=== PATIENT | female | born 2000 | race Caucasian/White ===

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

== ENCOUNTER → 2020-05-13 15:08 | Outpatient (BNVA) | payer OTHER, MEDICAID, SELFPAY | PROVIDERS: Visit Provider Nurse Practitioner Family | DX: N39.0 Urinary tract infection, site not specified (principal); R31.9 Hematuria, unspecified | CPT/HCPCS: 81000; 87077; 87086; 87184 ==

== ENCOUNTER → 2020-10-14 13:26 | Outpatient (BNVA) | payer OTHER, BC, MEDICAID, SELFPAY | PROVIDERS: Visit Provider Obstetrics & Gynecology | DX: Z32.01 Encounter for pregnancy test, result positive (principal) | CPT/HCPCS: 81025 ==

== ENCOUNTER → 2020-11-23 15:37 | Outpatient (BNVA) | payer OTHER, BC, MEDICAID, SELFPAY | PROVIDERS: Visit Provider Obstetrics & Gynecology | DX: N92.6 Irregular menstruation, unspecified (principal); O21.9 Vomiting of pregnancy, unspecified; Z3A.08 8 weeks gestation of pregnancy | CPT/HCPCS: 81025 ==

== ENCOUNTER → 2020-11-27 09:05 | Outpatient (BNVA) | payer OTHER, BC, MEDICAID, SELFPAY | PROVIDERS: Visit Provider Nurse Practitioner Women's Health | DX: Z34.01 Encounter for supervision of normal first pregnancy, first trimester (principal); Z3A.08 8 weeks gestation of pregnancy | CPT/HCPCS: 84315; 87077; 87086; 87184 ==

== ENCOUNTER → 2020-12-25 14:14 | Outpatient (BNVA) | payer OTHER, BC, MEDICAID, SELFPAY | PROVIDERS: Visit Provider Registered Nurse Neonatal Intensive Care | DX: Z20.822 Contact with and (suspected) exposure to COVID-19 (principal) | CPT/HCPCS: 87635 ==

== ENCOUNTER → 2021-01-15 09:30 | Outpatient (BNVA) | payer OTHER, BC, MEDICAID, SELFPAY | PROVIDERS: Visit Provider Obstetrics & Gynecology | DX: Z34.01 Encounter for supervision of normal first pregnancy, first trimester (principal) | CPT/HCPCS: 80307; 84315; 85025; 86592; 86762; 86803; 86850; 86900; 87077; 87086; 87184; 87340; 87491; 87591; 87661 ==

== ENCOUNTER 2021-06-22 22:43 | Inpatient (IN) | payer OTHER, BC, MEDICAID, SELFPAY ==
[2021-06-22] VITALS (33 sets, daily range): BP systolic 124–156; BP diastolic 82–101; PULSE 56–118; RESP 16–17; TEMP 36.3–36.7; O2SAT 90–100; BMI 22.9
[2021-06-22 23:05] LABS: Basophils # 0.1 10^3/uL (0.0-0.1); Basophils % 0.4 %; Eosinophils # 0.1 10^3/uL (0.0-0.8); Eosinophils % 0.7 %; Hematocrit 33.8 % (37.0-47.0); Hemoglobin 11.3 g/dL (11.5-15.3); Lymphocytes # 2.3 10^3/uL (1.5-6.5); Lymphocytes % 17.2 %; Mean Corpuscular HGB Conc 33.4 g/dL (30.0-36.0); Mean Corpuscular Hemoglobin 30.4 pg (28.0-34.0); Mean Corpuscular Volume 90.9 fl (81-99); Mean Platelet Volume 12.6 fL (7.4-10.4); Monocytes # 0.7 10^3/uL (0.2-0.9); Monocytes % 5.2 %; Neutrophils # 10.27 10^3/uL (1.8-8.0); Neutrophils % 75.5 %; Nucleated Red Blood Cells % 0 %; Platelet Count 228 10^3/cmm (130-400); Red Blood Count 3.72 10^6/uL (4.1-5.3); Red Cell Distribution Width 13.5 % (12.1-15.1); White Blood Count 13.6 10^3/uL (4.5-13.0)
[2021-06-23] VITALS (75 sets, daily range): BP systolic 112–168; BP diastolic 71–114; PULSE 30–97; RESP 14–18; TEMP 36.1–37.1; O2SAT 90–100
[2021-06-23] MEDS: fentaNYL 50 mcg/mL INJ 2mL IVP ×3 (00:07→02:26)
[2021-06-23] MEDS: dextrose 5%-lactated ringers 1,000 ML 125 ML IV (00:55)
[2021-06-23] MEDS: lactated ringers 1,000 ML 999 ML IV ×2 (02:45→03:34)
--- NOTE | 2021-06-23 03:56 | ANES.PAUD2 ---
Documented by User: Mary Ahmadi CRNA 06/23/21 03:58 Pre-Anesthetic Update Pre-Anesthetic Assessment: Date of Surgery/Procedure: 06/23/21 Preop Diagnosis: IUP Proposed Procedure: Labor Epidural Last Intake: 1800 - meal clears- current Labs Last 48hrs: Short CBC 06/22/21 Range/Units 22:40 WBC 13.6 H (4.5-13.0) 10^3/ uL Hgb 11.3 L (11.5-15.3) g/dL Hct 33.8 L (37.0-47.0) % MCV 90.9 (81-99) fl Plt Count 228 (130-400) 10^3/c mm Neut % (Auto) 75.5 % Neut # (Auto) 10.27 H (1.8-8.0) 10^3/u L Vitals: Temperature 97.3 F L 06/22/21 23:25 Pulse Rate 90 06/23/21 03:53 Pulse Rhythm 06/22/21 22:30 Pulse Strength 3+ Normal 06/22/21 22:30 Respiratory Rate 17 06/23/21 02:26 Respiratory Effort Non-Labored 06/23/21 02:26 Respiratory Depth Normal 06/23/21 02:26 Respiratory Patter n 06/23/21 02:26 Blood Pressure 155/89 06/23/21 03:49 Pulse Oximetry 90 06/23/21 03:53 Oxygen Delivery Me thod 06/22/21 22:30 Exam: Additional Exam Findings (including area of procedure): no changes since previous assessment 6 days prior Cardiac Studies: No Data to Display Anesthesia Procedures Epidural: Time Out Performed: Yes Consents Signed: Procedure Consent Consent: from patient, risks and benefits reviewed and patient agrees to proceed Epidural position: sitting Epidural procedure: sterile prep of area, 1% lidocaine to numb the area, negative for paresthesia passed, test dose given, placed PCEA, sterile dressing applied, L.U.D. no apparent complications and 0.2% Ropiavacaine @ mls/hr (13) Other Information: JASON at 5 cm catheter threaded to 12 cm. Documented by User: Wilfrid Tellez 06/23/21 09:37 Pre-Anesthetic Update Pre-Anesthetic Assessment: Date of Surgery/Procedure: 06/23/21 Cardiac Studies: No Data to Display
[2021-06-23] MEDS: lidocaine 2% INJ 20 mL INJECTION (08:55)
[2021-06-23] MEDS: oxytocin 30 UNIT/500 ML BAG 600 UNIT IV (08:55)
--- NOTE | 2021-06-23 09:19 | P.PCNOB_ITS ---
Delivery Note: Date of delivery: June 23, 2021 Pre-delivery diagnoses: 20-year-old 1 at 38 weeks estimated gestational age in active labor Post-delivery diagnoses: Status post spontaneous vaginal delivery Procedure: Spontaneous vaginal delivery Delivering Physician: Coleman Pringle Findings: 400 Delivery: DELIVERY: The patient progressed to complete without difficulty. She delivered a male with a weight of 7 pounds 3 ounces with Apgars of 9, 9. The baby was delivered from the DICK position and placed on the mother's abdomen. The cord was then clamped and cut 1 minute after delivery There was a nuchal cord x1. There was no meconium. The placenta and 3 vessel cord were delivered intact shortly thereafter. The perineum and vaginal vault were carefully examined. A second-degree posterior midline laceration was noted which was repaired with 3-0 Vicryl in the usual fashion. Both the mother and the baby were in stable condition. Post-Delivery Status: Good History History History 1 Term Miscarriages/Ectopic Living Children A&P Assessment and plan (1) Spontaneous vaginal delivery: I anticipate routine. She should build go home tomorrow afternoon. Status: Acute Coding Level of Care Code Acute Airplane Gastank Liner Assembler for Chg Fwd Diagnoses Spontaneous vaginal delivery O80
--- NOTE | 2021-06-23 09:19 | PM.OPHPUD ---
Labor & Delivery H&P Update Date of Procedure: June 23, 2021 Date H&P Performed: 06/22/21 Admission Diagnosis: Preop diagnosis: 20-year-old 1 at 38 weeks estimated gestational age Planned procedure: Spontaneous vaginal delivery Other information: The patient presented to the hospital in active labor. Her has been relatively unremarkable. Her labs have been as follows. Her blood type is a positive her antibody screen is negative. Her glucose screen was negative. She is rubella immune. Her GBS status is negative. She received a Tdap on 05/07. The remainder of her labs were within normal limits. Related Problem List Diagnoses (1) 38 weeks gestation of : I anticipate routine labor and spontaneous vaginal delivery.
--- NOTE | 2021-06-23 09:37 | ANE.PACU2 ---
Inpatient post-anesthesia follow up: Airway intact: Yes Vital signs: Temperature 97.0 F Pulse Rate 82 Respiratory Rate 16 Blood Pressure 142/88 Pulse Oximetry 99 Oxygen Delivery Me thod Room Air Oxygen Flow Rate Fraction of Inspir ed Oxygen Hydration adequate: Yes Nausea and vomiting: No Pain level: 2
[2021-06-23] MEDS: lanolin oint 7 gm 1 APPLIC TOPICAL (12:04)
[2021-06-23] MEDS: benzocaine-menthol 78 gm Canister 1 SPRAY TOPICAL (12:04)
[2021-06-23 14:35] LABS: Coronavirus Test Green County Not Detected
[2021-06-23] MEDS: ibuprofen 800 mg tablet PO ×2 (15:50→21:29)
[2021-06-23] MEDS: docusate sodium 100 mg Capsule PO (18:20)
[2021-06-23 22:17] LABS: Hematocrit 30.5 % (37.0-47.0); Hemoglobin 10.3 g/dL (11.5-15.3); Mean Corpuscular HGB Conc 33.8 g/dL (30.0-36.0); Mean Corpuscular Hemoglobin 31.3 pg (28.0-34.0); Mean Corpuscular Volume 92.7 fl (81-99); Mean Platelet Volume 12.9 fL (7.4-10.4); Platelet Count 219 10^3/cmm (130-400); Red Blood Count 3.29 10^6/uL (4.1-5.3); Red Cell Distribution Width 13.7 % (12.1-15.1); White Blood Count 16.8 10^3/uL (4.5-13.0)
[2021-06-24 04:39] VITALS: BP 127/75; PULSE 66; RESP 16; TEMP 36.7; O2SAT 99
[2021-06-24 07:10] VITALS: BP 126/88; PULSE 79; RESP 18; TEMP 36.8
[2021-06-24] MEDS: docusate sodium 100 mg Capsule PO (11:23)
[2021-06-24] MEDS: ibuprofen 800 mg tablet PO (11:23)
[2021-06-24] MEDS: prenatal vitamin Capsule 1 CAP PO (11:23)
--- NOTE | 2021-06-24 12:23 | P.DS_ITS ---
Discharge Providers ADMINISTRATIVE PROGRAM SPECIALIST Date of Admission: 06/22/21 22:43 Date of Discharge: 06/24/21 Attending Provider at Admission: Coleman Pringle MD Attending Provider at Discharge: Coleman Pringle MD Primary Care Provider: Jill Clark DO Reason for Visit Reason for Visit: Contractions Hospital Course Hospital Course The patient presented to the hospital in active labor. She had spontaneous rupture membranes. An epidural was placed. She progressed to complete and had an unremarkable delivery of a healthy-appearing male . She had a second- degree tear was repaired in usual fashion. Her course has been unremarkable. Her bleeding has been within normal limits. Her pain is been well controlled. She has breast-fed well. Information Peripartum Data: Infant Delivery Method: Vaginal Physical Exam Narrative: EXAM NARRATIVE: The patient is alert. She appears comfortable. Her heart has a regular rate and rhythm with no murmurs appreciated. Lungs are clear to auscultation bilaterally. Her fundus is firm and below the umbilicus. Urinary Catheter Management: Joiner Latex: Cath Placed During This Visit: yes Reason for Continuing Indwelling Catheter: Other Urinary Catheter Date of Insertion: 06/23/21 Urinary Catheter Time of Insertion: 04:30 History History History 1 Term Miscarriages/Ectopic Living Children Discharge Data Studies Completed and Pending Laboratory Results WBC 16.8 10^3/uL (4.5-13.0) H 06/23/21 21:33 RBC 3.29 10^6/uL (4.1-5.3) L 06/23/21 21:33 Hgb 10.3 g/dL (11.5-15.3) L 06/23/21 21:33 Hct 30.5 % (37.0-47.0) L 06/23/21 21:33 MCV 92.7 fl (81-99) 06/23/21 21:33 MCH 31.3 pg (28.0-34.0) 06/23/21 21:33 MCHC 33.8 g/dL (30.0-36.0) 06/23/21 21:33 RDW 13.7 % (12.1-15.1) 06/23/21 21:33 Plt Count 219 10^3/cmm (130-400) 06/23/21 21:33 MPV 12.9 fL (7.4-10.4) H 06/23/21 21:33 Neut % (Auto) 75.5 % 06/22/21 22:40 Lymph % (Auto) 17.2 % 06/22/21 22:40 [place] % (Auto) 5.2 % 06/22/21 22:40 Eos % (Auto) 0.7 % 06/22/21 22:40 Baso % (Auto) 0.4 % 06/22/21 22:40 Neut # (Auto) 10.27 10^3/uL (1.8-8.0) H 06/22/21 22:40 Lymph # (Auto) 2.3 10^3/uL (1.5-6.5) 06/22/21 22:40 [place] # (Auto) 0.7 10^3/uL (0.2-0.9) 06/22/21 22:40 Eos # (Auto) 0.1 10^3/uL (0.0-0.8) 06/22/21 22:40 Baso # (Auto) 0.1 10^3/uL (0.0-0.1) 06/22/21 22:40 Nucleated RBC % (auto) 0 % 06/22/21 22:40 Nucleated RBCs # 0.0 /100WBC 06/22/21 22:40 Nasal/Oral COVID-19 PCR Not detected 06/23/21 06:00 Vitals Last Vital Signs Temp 98.0 F 06/24/21 04:39 Pulse 66 06/24/21 04:39 Resp 16 06/24/21 04:39 BP 127/75 06/24/21 04:39 Pulse Ox 99 06/24/21 04:39 Discharge Plan Discharge Patient Disposition: Home Condition: Stable Prescriptions: New docusate sodium 100 mg Capsule 100 mg PO BID Qty: 20 0RF ibuprofen 800 mg Tablet 800 mg PO TID Qty: 45 0RF Continued PNV 119-iron fum-folic acid 29 mg iron- 1 mg tablet 1 tab PO DAILY 0RF Discharge Orders: Discharge Order (Routine); Ordered 06/24/21 Ordered By: Coleman Pringle Referrals: Coleman Pringle MD [Physician] - 6 Weeks (Your 6 week post appointment with Dr. Timmons is August 02 @ 1:45pm.) Discharge Diet: Usual diet Discharge Activity: Limit activity as instructed Patient Instructions: Bleeding (DC), Preeclampsia and Eclampsia After Delivery (GEN), Vaginal Delivery (DC), Breast Care for the Mother (DC), OB Food/Drug Interaction Guide, Opioid Safety, Depression Discharge Attestations ADMINISTRATIVE PROGRAM SPECIALIST Time Spent in Discharge Care*: less than 30 min Specific Discharge Activities: Specific discharge activities: educating patient and educating and/or supporting family/caregiver Coding Level of Care Code Acute Collections Attorney for Holger Doyle
[2021-06-24 13:50] VITALS: BP 114/72; PULSE 79; RESP 18; TEMP 37.1
[2021-06-24 14:00] VITALS: BP 114/72; PULSE 79; RESP 18; TEMP 37.1
== END 2021-06-24 14:00 | disposition home or self-care (01) | DRG 807 ==
LOC: OPOB 22:43 → OBGYN 22:43
PROVIDERS: Admitting Provider Family Medicine; PCP Family Medicine; Visit Provider Family Medicine
DX: O69.81X0 Labor and delivery complicated by cord around neck, without compression, not applicable or unspecified (principal); Z37.0 Single live birth; O70.1 Second degree perineal laceration during delivery; Z3A.38 38 weeks gestation of pregnancy
CPT/HCPCS: 12345; 36415; 51702; 59025; 59409; 85025; 85027; 87635; 96374; 96376; 99211; J2795; J3010

== ENCOUNTER 2021-07-18 05:37 | Emergency (ER) | payer OTHER, BC, MEDICAID, SELFPAY ==
[2021-07-18 05:44] VITALS: BP 113/74; PULSE 86; RESP 18; TEMP 36.8; O2SAT 100
[2021-07-18 05:51] VITALS: BP 113/74; PULSE 93; RESP 19; O2SAT 100
--- NOTE | 2021-07-18 06:13 | ED_ITS ---
HPI - Abdominal Pain General: Chief Complaint: Abdominal Pain Stated Complaint: Back Pain Time Seen by Provider: 07/18/21 06:03 Source: patient and family Mode of arrival: ambulatory Limitations: no limitations History of Present Illness: Pt with c/o epigastric abd pain and substernal chest pain. pain is crampy. Mild upper and lower back pain. no neuro changes. mild occas nausea. no vomiting or diarrhea. no fever. no melena or hematochezia. no urinary symptoms. pain for one week intermittently. pt is still breast feeding. pt has vaginal delivery about 3-4 weeks ago Onset (ago): week(s) (1) Pain Consistency: intermittent and colicky Location: Diffuse and Epigastric Severity: mild Migration to: other (back) Exacerbating factors: nothing Relieving factors: medication (tylenol/ibuprofen) Associated Symptoms: Reports GI cramping and nausea; Denies chills, diarrhea, dysuria, fever(s), hematochezia, hematuria and vomiting Review of Systems Const: Denies: fever(s), chills, fatigue or diaphoresis Eyes: Denies: change in vision ENMT: Denies: throat pain Card: Reports: chest pain and other (pleurisy); Denies: palpitations or dyspnea on exertion Resp: Denies: dyspnea or wheezing GI: Reports: abdominal pain, nausea and GI cramping; Denies: vomiting, diarrhea or hematochezia : Denies: flank pain, dysuria, urinary frequency or hematuria Musc: Denies: neck pain Skin/Breast: Denies: rash or pruritus Neuro: Denies: headache(s) or numbness in extremities Psych: Denies: anxiety González/Lymph: Denies: enlarged lymph nodes PFSH ED PFSH: Medical History Menorrhagia with irregular cycle No pertinent past medical history neghx: htn,dm,thyroid,dvt/pe PCP: Joann Chen Urinary incontinence Surgical History H/O total hip arthroplasty (~04/2018) 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 Family History Grandmother Breast cancer Maternal---dx age unknown Uterine cancer Maternal--dx age unknown Mother Hypertension Denies family history of Colon cancer Ovarian cancer Diabetes Heart disease Hypercholesteremia Thyroid disease Stroke Social History (Updated 07/18/21 @ 06:22 by Anson Daly MD) Smoking and tobacco status: never smoked Alcohol intake: never Physical Exam Const: COMMON NORMALS: no acute distress, patient oriented x3, no limitations and well nourished GENERAL APPEARANCE: cooperative HENMT: COMMON NORMALS: normocephalic and atraumatic HEAD & SCALP: normocephalic and atraumatic FACE & SINUS: normal facial exam Eye: COMMON NORMALS: EOMs intact bilaterally Neck/C-Spine: COMMON NORMALS: full ROM, no lymphadenopathy, supple and no meningeal signs GENERAL: Yes normal visual inspection Lymph: LYMPHATIC: no lymphadenopathy noted Chest: COMMONS NORMALS: normal inspection of the chest and normal palpation of entire chest wall CHEST: No Ecchymosis present and No rash Resp: COMMON NORMALS: normal respiratory effort, No retractions and clear to auscultation bilaterally EFFORT & INSPECTION: No respiratory distress AUSCULTATION: clear to auscultation bilaterally Cardio: COMMON NORMALS: regular rate, regular rhythm and Peripheral pulses 2+ throughout JUGULAR VENOUS DISTENTION: no JVD RATE: regular rate RHYTHM: regular rhythm PERIPHERAL PULSES: Peripheral pulses 2+ throughout GI: COMMON NORMALS: Normal to inspection, nondistended, normoactive bowel sounds present and Soft to palpation INSPECTION: Yes other (mild epigastric abd pain; no g/r) PALPATION: Yes Soft to palpation : COMMON NORMALS: Yes no CVA tenderness BLADDER/KIDNEY EXAM: Yes no CVA tenderness Back/Pelvis: COMMON NORMALS: no CVA tenderness THORACIC SPINE/UPPER BACK: Yes normal to inspection and Yes thoracic ROM normal LUMBAR SPINE/LOWER BACK: Yes normal to inspection and Yes lumbar ROM normal Extremity: COMMON NORMALS: normal to inspection, full ROM and capillary refill normal Neuro: COMMON NORMALS: patient oriented x3, CN's II-XII intact bilaterally, no focal motor deficits and no sensory deficits noted MENINGEAL SIGNS: Yes no meningeal signs Psych: COMMON NORMALS: mental status grossly normal and Normal thought process present THOUGHT PROCESS: Normal thought process present Skin: COMMON NORMALS: no rashes or lesions noted and no wounds GENERAL SKIN EXAM: no rashes or lesions noted Course Vital Signs: Vital signs: Vital Signs Temperature 98.3 F 07/18/21 05:44 Pulse Rate 88 07/18/21 07:39 Respiratory Rate 16 07/18/21 07:39 Blood Pressure 114/56 07/18/21 07:39 Pulse Oximetry 98 07/18/21 07:39 MDM - Abdominal Pain Medical Decision Making abdominal pain Lab Data I reviewed the patient's lab results. : 07/18/21 06:35 07/18/21 06:35 Labs/Radiology: Radiology Impressions Chest X-Ray 07/18/21 06:59 IMPRESSION: No acute findings. Abdomen/Pelvis CT 07/18/21 07:38 IMPRESSION: Mild apparent gallbladder wall thickening versus pericholecystic fluid, with no visualized stones. Correlate clinically and consider ultrasound for further evaluation. Laboratory Results WBC 11.0 10^3/uL (4.5-13.0) 07/18/21 06:35 RBC 3.63 10^6/uL (4.1-5.3) L 07/18/21 06:35 Hgb 10.7 g/dL (11.5-15.3) L 07/18/21 06:35 Hct 34.2 % (37.0-47.0) L 07/18/21 06:35 MCV 94.2 fl (81-99) 07/18/21 06:35 MCH 29.5 pg (28.0-34.0) 07/18/21 06:35 MCHC 31.3 g/dL (30.0-36.0) 07/18/21 06:35 RDW 13.2 % (12.1-15.1) 07/18/21 06:35 Plt Count 427 10^3/cmm (130-400) H 07/18/21 06:35 MPV 9.9 fL (7.4-10.4) 07/18/21 06:35 Neut % (Auto) 83.3 % 07/18/21 06:35 Lymph % (Auto) 12.3 % 07/18/21 06:35 [place] % (Auto) 3.5 % 07/18/21 06:35 Eos % (Auto) 0.4 % 07/18/21 06:35 Baso % (Auto) 0.2 % 07/18/21 06:35 Neut # (Auto) 9.18 10^3/uL (1.8-8.0) H 07/18/21 06:35 Lymph # (Auto) 1.4 10^3/uL (1.5-6.5) L 07/18/21 06:35 [place] # (Auto) 0.4 10^3/uL (0.2-0.9) 07/18/21 06:35 Eos # (Auto) 0.0 10^3/uL (0.0-0.8) 07/18/21 06:35 Baso # (Auto) 0.0 10^3/uL (0.0-0.1) 07/18/21 06:35 Nucleated RBC % (auto) 0 % 07/18/21 06:35 Nucleated RBCs # 0.0 /100WBC 07/18/21 06:35 Sodium 143 mmol/L (136-145) 07/18/21 06:35 Potassium 4.2 mmol/L (3.5-5.1) 07/18/21 06:35 Chloride 107 mmol/L (98-107) 07/18/21 06:35 Carbon Dioxide 23 mmol/L (22-29) 07/18/21 06:35 Anion Gap 17.2 (5-19) 07/18/21 06:35 BUN 24 mg/dL (6-20) H 07/18/21 06:35 Creatinine 0.6 mg/dL (0.5-0.9) 07/18/21 06:35 GFR Calculation 127.5 mL/min (90-130) 07/18/21 06:35 Glucose 91 mg/dL (65-115) 07/18/21 06:35 Calculated Osmolality 300 mOsm/kg (285-295) H 07/18/21 06:35 Calcium 9.4 mg/dL (8.5-10.5) 07/18/21 06:35 Total Bilirubin 0.3 mg/dL (0.15-1.2) 07/18/21 06:35 AST 17 U/L (0-32) 07/18/21 06:35 ALT 14 U/L (0-33) 07/18/21 06:35 Alkaline Phosphatase 112 IU/L (35-105) H 07/18/21 06:35 Total Protein 7.9 g/dL (6.6-8.7) 07/18/21 06:35 Albumin 4.7 g/dL (3.5-5.2) 07/18/21 06:35 Globulin 3.2 g/dL (1.3-4.6) 07/18/21 06:35 Lipase 30 U/L (13-60) 07/18/21 06:35 HCG, Qual Negative (Negative) 07/18/21 06:35 Urine Color Yellow (Yellow) 07/18/21 07:37 Urine Appearance Clear (CLEAR) 07/18/21 07:37 Urine pH 5 (5-7) 07/18/21 07:37 Ur Specific [place] 1.025 (1.005-1.030) 07/18/21 07:37 Urine Protein Neg (Negative) 07/18/21 07:37 Urine Glucose (UA) Norm (Normal) 07/18/21 07:37 Urine Ketones Negative (Negative) 07/18/21 07:37 Urine Blood Neg (Negative) 07/18/21 07:37 Urine Nitrate Negative (Negative) 07/18/21 07:37 Urine Bilirubin Neg (Negative) 07/18/21 07:37 Urine Urobilinogen 1 mg/dL (Negative) H 07/18/21 07:37 Ur Leukocyte Esterase Trace (Negative) H 07/18/21 07:37 Urine RBC None /hpf (0-2) 07/18/21 07:37 Urine WBC 5-10 /hpf (0-5) H 07/18/21 07:37 Ur Squamous Epith Cells 10-15 /hpf (0-5) H 07/18/21 07:37 Amorphous Sediment Not Reportable 07/18/21 07:37 Urine Bacteria 1+ /hpf (NONE) H 07/18/21 07:37 Urine Mucus 1+ /hpf 07/18/21 07:37 Imaging Data CXR: My impression: Portable chest x-ray appears normal. No free air. No infiltrates. No pneumothorax CT Abd/Pel: Radiologist's impression: Exam: CT Abdomen And Pelvis With Contrast Exam date and time: 07/18/2021 7:38 AM Age: 20 years old Clinical indication: Abdominal pain; Epigastric; Additional info: Generalized pain; Worse in epigastrium, preg neg; Also C/O back pain; Recent vaginal delivery 3-4 TECHNIQUE: Imaging protocol: Computed tomography of the abdomen and pelvis with contrast. Radiation optimization: All CT scans at this facility use at least one of these dose optimization techniques: automated exposure control; mA and/or kV adjustment per patient size (includes targeted exams where dose is matched to clinical indication); or iterative reconstruction. Contrast material: OMNIPAQUE 300; Contrast volume: 75 ml; Contrast route: INTRAVENOUS (IV);? COMPARISON: CR Hips Krishna 5v wwo Pelvis* [id number] 08/07/2017 3:15 PM RADIATION DOSE METRICS: Total DLP (mGy-cm): 797.15 FINDINGS: Liver: Normal. No mass. Gallbladder and bile ducts: The gallbladder is partially filled. There appears to be mild wall thickening versus pericholecystic fluid. No visualized stones. Normal caliber bile ducts. Pancreas: Normal. No ductal dilation. Spleen: Normal. No splenomegaly. Adrenal glands: Normal. No mass. Kidneys and ureters: No hydronephrosis. No mass. Stomach and bowel: No obstruction. No inflammatory changes. Appendix: No evidence of appendicitis. Intraperitoneal space: No free air. No significant fluid collection. Vasculature: Unremarkable. No abdominal aortic aneurysm. Lymph nodes: Unremarkable. No enlarged lymph nodes. Urinary bladder: Unremarkable as visualized. Reproductive: Unremarkable as visualized. Bones/joints: Unremarkable. No acute fracture. Soft tissues: Unremarkable. CT/CT abdomen pelvis w con* [id number] IMPRESSION: Mild apparent gallbladder wall thickening versus pericholecystic fluid, with no visualized stones. Correlate clinically and consider ultrasound for further evaluation. ? Other Data Patient is not n.p.o. for [facility] ultrasound this point. Patient's last food intake was at 5 AM. Patient will return tomorrow morning for gallbladder ultrasound after being n.p.o. after midnight. Patient instructed to not eat any fatty food. Discharge Plan Discharge Patient Disposition: Home Clinical Impression: Abdominal pain Qualifiers: Abdominal location: generalized Qualified Code(s): R10.84 - Generalized abdominal pain Condition: Stable Prescriptions: New Zofran 4 mg tablet 4 mg PO Q6H PRN (Reason: nausea and vomiting) Qty: 10 2RF No Action PNV 119-iron fum-folic acid 29 mg iron- 1 mg tablet 1 tab PO DAILY 0RF docusate sodium 100 mg Capsule 100 mg PO BID Qty: 20 0RF ibuprofen 800 mg Tablet 800 mg PO TID Qty: 45 0RF Discharge Orders: Discharge ED (Routine); Ordered 07/18/21 Ordered By: Anson Daly Referrals: Niall Sena MD [Physician] - (follow up for possible gallbladder problem) Jill Clark DO [Primary Care Provider] - Discharge Diet: As Directed Discharge Activity: Resume usual activity Patient Instructions: Biliary Colic (ED), Low Fat Diet (ED), Abdominal Pain (ED) Activity Restrictions/Additional Instructions: Follow-up here around 8 AM for gallbladder ultrasound. Bring order sheet with you. You need to be without any to eat after midnight. Avoid fatty foods. If there is a problem with her gallbladder, follow-up with Dr. Sena general surgeon for evaluation of gallbladder. Take ibuprofen or Tylenol for pain. Coding Level of Care Code ED Staff Technologist for Chg Fwd Exam Comprehensive
[2021-07-18] MEDS: pantoprazole 40 mg SDV IVP (06:47)
[2021-07-18 06:48] VITALS: BP 118/81; PULSE 95; RESP 17; O2SAT 98
[2021-07-18 06:48] LABS: Basophils % 0.2 %; Eosinophils % 0.4 %; Hematocrit 34.2 % (37.0-47.0); Hemoglobin 10.7 g/dL (11.5-15.3); Lymphocytes # 1.4 10^3/uL (1.5-6.5); Lymphocytes % 12.3 %; Mean Corpuscular HGB Conc 31.3 g/dL (30.0-36.0); Mean Corpuscular Hemoglobin 29.5 pg (28.0-34.0); Mean Corpuscular Volume 94.2 fl (81-99); Mean Platelet Volume 9.9 fL (7.4-10.4); Monocytes # 0.4 10^3/uL (0.2-0.9); Monocytes % 3.5 %; Neutrophils # 9.18 10^3/uL (1.8-8.0); Neutrophils % 83.3 %; Nucleated Red Blood Cells % 0 %; Platelet Count 427 10^3/cmm (130-400); Red Blood Count 3.63 10^6/uL (4.1-5.3); Red Cell Distribution Width 13.2 % (12.1-15.1)
--- NOTE | 2021-07-18 06:59 | XRR_ITS ---
PROCEDURE INFORMATION: Exam: XR Chest Exam date and time: 07/18/2021 6:59 AM Age: 20 years old Clinical indication: Sternal or substernal pain; Additional info: Substernal chest pain, shield abd TECHNIQUE: Imaging protocol: XR of the chest. Views: 1 view. COMPARISON: CR XR KUB [id number] 06/20/2016 7:55 AM FINDINGS: Lungs: Unremarkable. No consolidation. Pleural spaces: Unremarkable. No pleural effusion. No pneumothorax. Heart/Mediastinum: Unremarkable. No cardiomegaly. Bones/joints: Unremarkable. XR/XR chest 1V portable [id number] IMPRESSION: No acute findings.
[2021-07-18 07:09] LABS: Alanine Aminotransferase 14 U/L (0-33); Albumin Level 4.7 g/dL (3.5-5.2); Alkaline Phosphatase 112 IU/L (35-105); Anion Gap 17.2 (5-19); Aspartate Amino Transferase 17 U/L (0-32); Blood Urea Nitrogen 24 mg/dL (6-20); Calcium 9.4 mg/dL (8.5-10.5); Carbon Dioxide 23 mmol/L (22-29); Chloride 107 mmol/L (98-107); Creatinine Clr Calc Pharmacy 132.1571; Globulin 3.2 g/dL (1.3-4.6); Glomerular Filtration Rate 127.5 mL/min (90-130); Glucose 91 mg/dL (65-115); Lipase 30 U/L (13-60); Osmolality Calculated 300 mOsm/kg (285-295); Potassium 4.2 mmol/L (3.5-5.1); Sodium 143 mmol/L (136-145); Total Bilirubin 0.3 mg/dL (0.15-1.2); Total Protein 7.9 g/dL (6.6-8.7)
[2021-07-18 07:10] LABS: HCG, Serum Qual Negative (Negative)
--- NOTE | 2021-07-18 07:38 | CTR_ITS ---
PROCEDURE INFORMATION: Exam: CT Abdomen And Pelvis With Contrast Exam date and time: 07/18/2021 7:38 AM Age: 20 years old Clinical indication: Abdominal pain; Epigastric; Additional info: Generalized pain; Worse in epigastrium, preg neg; Also C/O back pain; Recent vaginal delivery 3-4 TECHNIQUE: Imaging protocol: Computed tomography of the abdomen and pelvis with contrast. Radiation optimization: All CT scans at this facility use at least one of these dose optimization techniques: automated exposure control; mA and/or kV adjustment per patient size (includes targeted exams where dose is matched to clinical indication); or iterative reconstruction. Contrast material: OMNIPAQUE 300; Contrast volume: 75 ml; Contrast route: INTRAVENOUS (IV); COMPARISON: CR Hips Krishna 5v wwo Pelvis* [id number] 08/07/2017 3:15 PM RADIATION DOSE METRICS: Total DLP (mGy-cm): 797.15 FINDINGS: Liver: Normal. No mass. Gallbladder and bile ducts: The gallbladder is partially filled. There appears to be mild wall thickening versus pericholecystic fluid. No visualized stones. Normal caliber bile ducts. Pancreas: Normal. No ductal dilation. Spleen: Normal. No splenomegaly. Adrenal glands: Normal. No mass. Kidneys and ureters: No hydronephrosis. No mass. Stomach and bowel: No obstruction. No inflammatory changes. Appendix: No evidence of appendicitis. Intraperitoneal space: No free air. No significant fluid collection. Vasculature: Unremarkable. No abdominal aortic aneurysm. Lymph nodes: Unremarkable. No enlarged lymph nodes. Urinary bladder: Unremarkable as visualized. Reproductive: Unremarkable as visualized. Bones/joints: Unremarkable. No acute fracture. Soft tissues: Unremarkable. CT/CT abdomen pelvis w con* [id number] IMPRESSION: Mild apparent gallbladder wall thickening versus pericholecystic fluid, with no visualized stones. Correlate clinically and consider ultrasound for further evaluation.
[2021-07-18 07:39] VITALS: BP 114/56; PULSE 88; RESP 16; O2SAT 98
[2021-07-18 07:53] LABS: Specific Gravity, Urine 1.025 (1.005-1.030); Urine Appearance Clear (CLEAR); Urine Color Yellow (Yellow); pH Urine 5 (5-7)
[2021-07-18 07:55] LABS: Add Urine Microscopic? YES; Bacteria Urine 1+ /hpf; Bilirubin Urine Neg (Negative); Blood Urine Neg (Negative); Glucose Urine UA Norm (Normal); Ketones Urine Negative (Negative); Leukocyte Esterase Urine Trace (Negative); Mucus Urine 1+ /hpf; Nitrate Urine Negative (Negative); Protein Urine Neg (Negative); Urobilinogen Urine 1 mg/dL (Negative)
[2021-07-18 07:56] LABS: Add Urine Culture? No
[2021-07-18] MEDS: iohexol 300 mg/mL 100 mL Btl IV (08:02)
[2021-07-18 08:50] VITALS: BP 107/54; PULSE 88; O2SAT 98
--- NOTE | 2021-07-19 09:02 | DCPLANNER ---
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 Patient had an ultrasound 07.19.21.
== END 2021-07-18 08:52 | disposition home or self-care (01) ==
PROVIDERS: Emergency Provider Family Medicine; PCP Family Medicine
DX: R10.84 Generalized abdominal pain (principal)
CPT/HCPCS: 71045; 74177; 80053; 81001; 83690; 84703; 85025; 96374; 99283; C9113; Q9967

== ENCOUNTER 2021-07-19 08:09 | Outpatient (CLI) | payer OTHER, BC, MEDICAID, SELFPAY ==
--- NOTE | 2021-07-19 08:20 | US_ITS ---
WS: [id number] RIGHT UPPER QUADRANT ULTRASOUND HISTORY: EPIGASTRIC ABDOMINAL PAIN COMPARISON: 07/18/2021 and 06/20/2016 Liver: 15.0 cm in length. Normal size liver. No bile duct dilatation or mass. Portal Vein: Normal hepatopetal flow with monophasic waveform. Gallbladder: Normally distended gallbladder. The gallbladder wall is top normal size at 3 mm. No denton cholecystic fluid. No stones or sludge identified. CBD: 0.4 cm Pancreas: Normal size and echogenicity. Right kidney: 11.2 cm in length. Normal size and echogenicity. No hydronephrosis or mass. Aorta and IVC: Unremarkable abdominal aorta and IVC. No ascites. US/US gall bladder [id number] IMPRESSION: 1. Gallbladder wall is top normal size. No pericholecystic fluid. 2. No cholelithiasis. 3. No bile duct dilatation.
== END 2021-07-19 08:10 | disposition home or self-care (01) ==
LOC: RAD 08:13
PROVIDERS: PCP Family Medicine; Visit Provider Family Medicine
DX: R10.13 Epigastric pain (principal)
CPT/HCPCS: 76705

== ENCOUNTER 2021-09-09 06:27 | Outpatient (CLI) | payer OTHER, BC, MEDICAID, SELFPAY ==
--- NOTE | 2021-09-09 08:00 | NM_ITS ---
WS: [id number] NUCLEAR MEDICINE HIDA SCAN CLINICAL INFORMATION: R10.9 - Unspecified abdominal pain TECHNIQUE: Following intravenous administration of 7.5 mCi of technetium 99m mebrofenin, images of th e abdomen were obtained over the course of 60 minutes. Next, gallbladder ejection fraction was determ ined by obtaining preprandial and one-hour postprandial images of the gallbladder following oral chelsey stion of Ensure. COMPARISON: Ultrasound gallbladder July 19, 2021 FINDINGS: Normal hepatic uptake at 5 minutes. Normal hepatic excretion. Gallbladder is visualized by 10 minutes . No evidence of acute cholecystitis. Normal common bile duct and small bowel activity. Gallbladder ejection fraction 86% within normal limits. No evidence of chronic cholecystitis. NM/NM hepatobiliary w phar* [id number] IMPRESSION: 1. No evidence of acute or chronic cholecystitis. 2. Gallbladder ejection fraction 86% within normal limits.
== END 2021-09-09 06:28 | disposition home or self-care (01) ==
LOC: RAD 06:28
PROVIDERS: PCP Family Medicine; Visit Provider Surgery
DX: R10.9 Unspecified abdominal pain (principal)
CPT/HCPCS: 78227; A9537

== ENCOUNTER 2021-10-21 06:01 | Day surgery (SDC) | payer OTHER, BC, MEDICAID, SELFPAY ==
[2021-10-20 14:34] VITALS: BMI 19.6
[2021-10-21] VITALS (8 sets, daily range): BP systolic 104–114; BP diastolic 60–85; PULSE 57–80; RESP 8–25; TEMP 36.1–36.7; O2SAT 97–100
--- NOTE | 2021-10-21 06:27 | ANES.PREANE2 ---
Pre-Anesthetic Assessment Height/Weight: Height 1.65 m Weight 53.524 kg Preop Diagnosis: chronic cholecstitis Operation Date: 10/21/21 07:45 Proposed Procedures p Laparoscopic Cholecystectomy possible open chol 14525/ruq abd pain R10.11(Not Applicable) - Niall Sena MD s EGD [id number](Not Applicable) - Niall Sena MD Familial anesthetic complications: none Was Beta Vito taken within 24 hours: N/A Was Clonidine taken within 24 hours: N/A Last intake: > 8hrs Social No alcohol and No tobacco Exam alert, oriented x 3, clear to auscultation bilaterally and regular rate & rhythm Airway Mallampati: Class I Dentition: full Anesthetic Plan ASA status: 1 Anesthesia: General Medications/Allergies Home Medications Medication Instructions Recorded Confirmed Last Taken Type vitamins no.119-iron 1 tab PO DAILY tab 11/27/20 10/21/21 10/18/21 History fumarate 29 mg-folic acid 1 mg tablet ibuprofen 800 mg tablet 800 mg PO TID PRN 10/20/21 10/21/21 Unknown History Allergies Allergy/AdvReac Type Severity Reaction Status Date / Time No Known Allergies Allergy Verified 10/20/21 14:32 [facility] Anesthesia Medical History Menorrhagia with irregular cycle Urinary incontinence Surgical History H/O total hip arthroplasty (~04/2018) 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
[2021-10-21] MEDS: sodium chloride 0.9% 1,000 ML 30 ML IV (06:32)
[2021-10-21 06:46] LABS: OR HCG Qualitative Urine Negative (Negative)
--- NOTE | 2021-10-21 06:54 | P.HP_ITS ---
Same Day Surgery H&P Indication for Procedure/HPI DATE OF PROCEDURE: October 21, 2021 CHIEF COMPLAINT/INDICATIONFOR SURGICAL PROCEDURE: egd/lap andreas PREOP DIAGNOSIS: chronic cholecstitis PLANNED PROCEDURE: Operation Date: 10/21/21 07:45 Proposed Procedures p Laparoscopic Cholecystectomy possible open chol 21933/ruq abd pain R10.11(Not Applicable) - Niall Sena MD s EGD [id number](Not Applicable) - Niall Sena MD Medications/Allergies* Home Medications Medication Instructions Recorded Confirmed Type vitamins no.119-iron 1 tab PO DAILY tab 11/27/20 10/21/21 History fumarate 29 mg-folic acid 1 mg tablet ibuprofen 800 mg tablet 800 mg PO TID PRN 10/20/21 10/21/21 History Allergies/Adverse Reactions Allergy/AdvReac Type Severity Reaction Status Date / Time No Known Allergies Allergy Verified 10/20/21 14:32 Current Medications: Generic Name Dose Route Start Last Admin Trade Name Freq PRN Reason Stop Dose Admin Sodium Chloride 1,000 mls @ 30 mls/hr 10/21/21 06:15 10/21/21 06:32 Sodium Chloride 0.9% IV 10/22/21 06:14 30 mls/hr .Q24H ARASELI Administration Pertinent History/Comorbid Conditions* Medical History (Updated 07/26/21 @ 00:01 by ) Menorrhagia with irregular cycle Urinary incontinence Surgical History (Updated 11/27/20 @ 09:46 by Natividad Dahl APN, KOKI) H/O total hip arthroplasty (~04/2018) 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
[2021-10-21] MEDS: lidocaine 2% INJ 20 mL INJECTION (08:33)
--- NOTE | 2021-10-21 09:07 | PM.OP ---
Operative Report Date of procedure: October 21, 2021 Pre-op diagnosis: Postprandial right upper quadrant pain, normal imaging studies chronic cholecystitis Post-op diagnosis: 1. Normal EGD 2. Chronic cholecystitis Procedure done: 1. Esophagogastroduodenoscopy without biopsy 2. Laparoscopic cholecystectomy Specimens removed/disposition: Gallbladder Surgeon: Niall Sena Anesthesia: General Condition: stable Disposition: PACU Procedure: The patient was taken to the operating room and was intubated under general anesthesia. A gastroscope was introduced and advanced up to the second portion of the duodenum and slowly withdrawn. Esophagus Esophagus: Normal GE junction: Z-line at 40 cm Stomach Fundus: Normal Body: Normal Antrum: Normal Pylorus: Normal Duodenum First portion of duodenum: Normal Second portion of duodenum: Normal After the antibiotic had been administered, the abdomen was prepped and draped in a sterile manner. Using a #15 blade, a 1 centimeter infraumbilical curvilinear incision was made and using an open Jennifer technique the peritoneal cavity was entered. A 10 millimeter port was placed and 15 millimeters of pneumoperitoneum was created. A 10 millimeter, 30 degrees scope was then introduced. Three 5 millimeter ports were placed in the epigastric, midclavicular and the anterior axillary line two fingerbreadths below the costal margin on the right side under the direct visualization. Ratcheted forceps were introduced into the lateral most port and was used to retract the fundus of the gallbladder cephalad and using forceps the infundibulum of the gallbladder was retracted laterally. Using L-hook cautery the peritoneum overlying the Calot's triangle was opened medially and laterally until the cystic duct and the cystic artery were skeletonized. Dissection was carried along the body of the gallbladder and after ensuring critical view of safety, 4 clips applied on the cystic duct and 3 clips applied on the cystic artery and cut leaving, 3 clips on the remaining portion of the duct and 2 clips on the remaining portion of the artery. The rest of the gallbladder was dissected off the liver using L-hook cautery. There was no bleeding or bile leaking noted from the gallbladder fossa and the clips appeared to be in place. An EndoCatch bag was introduced to remove the gallbladder. All the ports were removed under direct visualization and there was no bleeding noted from the port sites. The fascia of the umbilicus was closed using [id number] 0 Vicryl sutures and the subcutaneous tissue was approximated using 3-0 Vicryl sutures. The skin at all four ports were closed using 4-0 Monocryl and Dermabond. A total of 10 millimeters of 0.5% Marcaine was infiltrated around the port sites. The patient was stable throughout the procedure.
[2021-10-21] MEDS: HYDROcodone-acetaminophen 5-325 mg Tablet 1 TAB PO (09:53)
--- NOTE | 2021-10-21 14:32 | ANE.PACU2 ---
Inpatient post-anesthesia follow up: Airway intact: Yes Vital signs: Temperature 98 F Pulse Rate 67 Respiratory Rate 18 Blood Pressure 110/68 Pulse Oximetry 100 Oxygen Delivery Me thod Room Air Oxygen Flow Rate 5 Fraction of Inspir ed Oxygen Hydration adequate: Yes Nausea and vomiting: No Pain level: 1 Mental status: Baseline
== END 2021-10-21 10:15 | disposition home or self-care (01) ==
PROVIDERS: Anesthesiology; PCP Family Medicine; Visit Provider Surgery
PROC: 0FT44ZZ Resection of Gallbladder, Percutaneous Endoscopic Approach (ICD-10-PCS; CPT 47562; principal; 2021-10-21 07:45)
PROC: 0DJ08ZZ Inspection of Upper Intestinal Tract, Via Natural or Artificial Opening Endoscopic (ICD-10-PCS; CPT 43235; 2021-10-21 07:45)
DX: K81.1 Chronic cholecystitis (principal)
CPT/HCPCS: 43235; 47562; 81025; 84703; 88304; J0690; J1100; J2250; J2405; J2704; J2710; J3010; J3490; J7030

== ENCOUNTER → 2024-06-14 16:45 | Outpatient (BNVA) | payer OTHER, SELFPAY | PROVIDERS: PCP Family Medicine | DX: J02.9 Acute pharyngitis, unspecified (principal) | CPT/HCPCS: 87880 ==